=== PATIENT | male | born 1985 | race Native Hawaiian/Other Pacific Islander ===

== ENCOUNTER 2017-08-28 03:56 | Emergency (ER) | payer BC, OTHER ==
[~2017-08-28] VITALS: Ht 165.1 cm; Wt 68.0 kg
[2017-08-28] MEDS ORDERED: AMOXICILLIN 500 MG CAPSULE (04:13)
[2017-08-28] MEDS ORDERED: OFLOXACIN 0.3% (04:13)
[2017-08-28] MEDS ORDERED: EYE (04:13)
--- NOTE | 2017-08-28 04:24 | NUR ---
Patient discharged to home in stable conditon. Written and verbal after care instructions given. Patient verbalizes understanding of instructions.
== END 2017-08-28 04:25 | disposition home or self-care (01) ==
LOC: ER 03:58
DX: H92.01 Otalgia, right ear (principal); E03.9 Hypothyroidism, unspecified; Z91.018 Allergy to other foods
CPT/HCPCS: 99281; A4663